=== PATIENT | female | born 1990 | race Caucasian/White ===

== ENCOUNTER → 2017-04-09 | Outpatient (CLI) | payer OTHER ==
--- NOTE | 2017-04-09 17:39 | REP ---
Focused left breast sonography: History: 26-year woman with painful 1 x 2 cm mass located in the left breast at 1 and 3 o'clock position. Sonographic findings: Heterogeneous fibroglandular background echotexture is seen. The left breast scanned 1 o'clock to 3 o'clock. At 2 o'clock there is a 0.5 x 0.5 x 0.7 cm hypoechoic lesion with its long axis parallel to the skin. There is a well defined back wall and mild enhanced through transmission. This is compatible with fibroadenoma. No observable Doppler flow is seen. This is located no 0.5 cm and no. At 1 o'clock there is a hypoechoic nodule 7.7 cm of the nipple. It measures 0.8 x 0.6 x 1.3. There is some arterial flow at the periphery of this larger nodule. Impression: Two solid hypoechoic nodules corresponding to the palpable abnormalities in the upper outer quadrant left breast. These are compatible with the most likely represent fibroadenomas although ultrasound is not specific. If ultrasound-guided needle biopsy is not desired, clinical follow-up is recommended. Signed by Phillip Marino MD 04/10/2017 02:09 P
== END ==
LOC: M RAD 14:04
PROVIDERS: ATTEND Physician Assistant
DX: N63.0 Unspecified lump in unspecified breast (principal)

== ENCOUNTER → 2018-04-29 | Outpatient (CLI) | payer OTHER | LOC: M RAD 10:04 | DX: N63.20 Unspecified lump in the left breast, unspecified quadrant (principal) | CPT/HCPCS: 77065 ==

== ENCOUNTER → 2018-06-16 | Outpatient (REF) | payer OTHER ==
[~2018-06-16] MED LIST: CYCL10TA PO; IBUP-1022 PO; TRINTAB3 PO
== END ==
LOC: M LAB REF 11:58
DX: N63.0 Unspecified lump in unspecified breast (principal)